=== PATIENT | female | born 1970 | race Caucasian/White ===

== ENCOUNTER 2019-04-19 10:50 | Inpatient (IN) ==
[2019-04-19] MEDS ORDERED: Isovue-370 500 ML BOTTLE IVP ONE (11:00)
[2019-04-19] MEDS ORDERED: 0.9 % Sodium Chloride 1,000 ML IVC STA ×2 (11:14→11:43)
[2019-04-19 11:32] LABS: Hematocrit 38.5 % (35.3-44.9); Hemoglobin 12.3 g/dL (11.5-15.4); Mean Corpuscular HGB Conc 31.9 g/dL (31.6-35.5); Mean Corpuscular Hemoglobin 28.7 pg (28.0-33.3); Platelet Count 126 K/mcL (140-400); Red Blood Count 4.28 M/mcL (3.82-4.97); Red Cell Distribution Width 15.9 % (11.5-14.5); White Blood Count 10.5 K/mcL (4.3-11.1)
[2019-04-19] MEDS ORDERED: Ondansetron 4 MG/2 ML VIAL IVP STA (11:35)
[2019-04-19] MEDS ORDERED: Pantoprazole 80 MG in 0.9 % Sodium Chloride 50 ML IVPB ONE (11:38)
[2019-04-19] MEDS ORDERED: 0.9 % Sodium Chloride 1,000 ML ONE ×2 (11:40→14:14)
[2019-04-19] MEDS ORDERED: 0.9 % Sodium Chloride 500 ML ONE (11:47)
[2019-04-19 11:54] LABS: Alanine Aminotransferase 19 Units/L (7-52); Albumin 3.6 g/dL (3.5-5.7); Albumin/Globulin Ratio 1.1 (1.1-2.2); Alkaline Phosphatase 100 Units/L (34-104); Aspartate Amino Transferase 31 Units/L (13-39); BUN/Creatinine Ratio 36 (6-26); Bilirubin,Direct 0.6 mg/dL (0.0-0.2); Bilirubin,Indirect 1.3 mg/dL (0.0-1.0); Bilirubin,Total 1.9 mg/dL (0.3-1.0); Blood Urea Nitrogen 24 mg/dL (6-20); Calcium 9.2 mg/dL (8.6-10.3); Carbon Dioxide 21 mEq/L (23-29); Chloride 101 mEq/L (98-107); Globulin 3.2 g/dL (2.4-3.5); Glucose 176 mg/dL (70-105); Lipase 36 Units/L (11-82); Osmolality,Calculated 292 (280-300); Potassium 3.3 mEq/L (3.5-5.1); Sodium 137 mEq/L (136-145); Total Protein 6.8 g/dL (6.4-8.9); eGFR For African Americans > 60 (> 60); eGFR For Non-African Americans > 60 (> 60)
[2019-04-19 12:02] LABS: INR 1.3; Prothrombin Time 14.3 Seconds (9.4-12.1)
[2019-04-19 12:06] LABS: Activated Partial Thrombo Time 33.3 Seconds (26.0-36.0)
[2019-04-19 12:18] LABS: Lymphocytes # 3.6 K/mcL (0.6-4.6); Monocytes # 0.8 K/mcL (0.0-1.3); Neutrophils # 6.1 K/mcL (1.6-8.9); Platelet Estimate Slight Decrease (Normal)
[2019-04-19 12:19] LABS: Reactive Lymphocytes Present (Not Present)
[2019-04-19] MEDS ORDERED: *HR* Midazolam HCl 5 MG/5 ML VIAL IVP ONE ×4 (12:44→13:18)
[2019-04-19] MEDS ORDERED: *HR* FentaNYL (PF) 100 MCG/2 ML VIAL IVP ONE (12:44)
[2019-04-19] MEDS ORDERED: *HR* FentaNYL (PF) 100 MCG/2 ML VIAL ONE ×2 (13:19→14:43)
[2019-04-19] MEDS ORDERED: cefTRIAXone 1,000 MG in Water for inj. (sterile) 10 ML IVP ONE (13:35)
[2019-04-19] MEDS: Octreotide 400 MCG in 0.9 % Sodium Chloride 100 ML IVC SCH ×2 (14:15→23:00)
[2019-04-19] MEDS ORDERED: *HR* Propofol 200 MG/20 ML VIAL IVP ONE (14:43)
[2019-04-19] MEDS ORDERED: *HR* Midazolam HCl 2 MG/2 ML VIAL ONE (14:43)
[2019-04-19] MEDS ORDERED: Lidocaine -MPF 2% 2 ML VIAL ONE (14:44)
[2019-04-19] MEDS ORDERED: Lidocaine -MPF 4% 5 ML AMPUL ONE (14:46)
[2019-04-19] MEDS ORDERED: *HR* PHENYLEPHRINE 1,000 MCG/10 ML SYRINGE IVP ONE (15:24)
[2019-04-19] MEDS ORDERED: Dexamethasone 4 MG/ML VIAL ONE (15:35)
[2019-04-19] MEDS ORDERED: Ondansetron 4 MG/2 ML VIAL ONE (15:35)
[2019-04-19 17:32] LABS: Hemoglobin 13.1 g/dL (11.5-15.4)
[2019-04-19 17:33] LABS: Hematocrit 40.6 % (35.3-44.9)
[2019-04-19] MEDS ORDERED: Naloxone 0.4 MG/ML INJ IVP PRN (17:41)
[2019-04-19] MEDS ORDERED: Folic Acid 1 MG in 0.9 % Sodium Chloride 50 ML IVPB SCH (18:00)
[2019-04-19] MEDS ORDERED: Thiamine (B-1) 100 MG in 0.9 % Sodium Chloride 50 ML IVPB SCH (18:00)
[2019-04-19] MEDS ORDERED: Permethrin Cream Rinse 60 ML LIQUID TP ONE (18:18)
[2019-04-19] MEDS ORDERED: *HR* Dextrose 50 % in Water (Syg) 50 ML SYRINGE IVP PRN (18:23)
[2019-04-19] MEDS ORDERED: Dextrose Gel 15 GM/37.5 ML TUBE PO PRN ×2 (18:23)
[2019-04-19] MEDS ORDERED: D5% in Water 1,000 ML IVC PRN (18:23)
[2019-04-19] MEDS ORDERED: Thiamine (B-1) 100 MG, Folic Acid 1 MG in 0.9 % Sodium Chloride 50 ML IVPB SCH (18:45)
[2019-04-19] MEDS: Pantoprazole 40 MG VIAL IVP SCH (18:49)
[2019-04-19 21:27] LABS: Estimated Average Glucose 143 mg/dl
[2019-04-19] MEDS: 0.9 % Sodium Chloride w KCl 20 MEQ/1,000 ML MLS IVC SCH (22:06)
[2019-04-19 22:51] LABS: Hematocrit 39.5 % (35.3-44.9)
[2019-04-20] MEDS ORDERED: Ondansetron 4 MG/2 ML VIAL IVP PRN ×2 (01:31→12:05)
[2019-04-20 05:06] LABS: Basophils % 0.2 %; Immature Granulocytes % 0.6 % (0-4); Segmented Neutrophils % 70.2 %
[2019-04-20 05:08] LABS: Hemoglobin 12.2 g/dL (11.5-15.4); Lymphocytes # 1.9 K/mcL (0.6-4.6); Mean Corpuscular HGB Conc 32.1 g/dL (31.6-35.5); Mean Corpuscular Hemoglobin 28.2 pg (28.0-33.3); Mean Corpuscular Volume 87.8 fL (83.0-100.0); Mean Platelet Volume 12.3 fL (9.4-12.4); Monocytes # 1.2 K/mcL (0.0-1.3); Neutrophils # 7.5 K/mcL (1.6-8.9); Red Blood Count 4.33 M/mcL (3.82-4.97); Red Cell Distribution Width 17.1 % (11.5-14.5); White Blood Count 10.7 K/mcL (4.3-11.1)
[2019-04-20 05:21] LABS: Platelet Count 85 K/mcL (140-400)
[2019-04-20 05:29] LABS: Alanine Aminotransferase 20 Units/L (7-52); Albumin 3.3 g/dL (3.5-5.7); Albumin/Globulin Ratio 1.1 (1.1-2.2); Alkaline Phosphatase 86 Units/L (34-104); Aspartate Amino Transferase 27 Units/L (13-39); BUN/Creatinine Ratio 53 (6-26); Blood Urea Nitrogen 38 mg/dL (6-20); Calcium 8.4 mg/dL (8.6-10.3); Carbon Dioxide 20 mEq/L (23-29); Chloride 112 mEq/L (98-107); Glucose 204 mg/dL (70-105); Magnesium 1.9 mg/dL (1.6-2.6); Osmolality,Calculated 311 (280-300); Phosphorous 3.3 mg/dL (2.7-4.5); Potassium 3.9 mEq/L (3.5-5.1); Sodium 143 mEq/L (136-145); Total Protein 6.3 g/dL (6.4-8.9); eGFR For African Americans > 60 (> 60); eGFR For Non-African Americans > 60 (> 60)
[2019-04-20] MEDS: Pantoprazole 40 MG VIAL IVP SCH ×2 (05:29→17:33)
[2019-04-20] MEDS: Octreotide 400 MCG in 0.9 % Sodium Chloride 100 ML IVC SCH (07:45)
[2019-04-20] MEDS: 0.9 % Sodium Chloride w KCl 20 MEQ/1,000 ML MLS IVC SCH ×2 (11:05→16:03)
[2019-04-20] MEDS ORDERED: Naloxone 0.4 MG/ML INJ IVP PRN (12:05)
[2019-04-20] MEDS ORDERED: D5% in Water 1,000 ML IVC PRN (12:05)
[2019-04-20] MEDS ORDERED: *HR* Dextrose 50 % in Water (Syg) 50 ML SYRINGE IVP PRN (12:05)
[2019-04-20] MEDS ORDERED: Dextrose Gel 15 GM/37.5 ML TUBE PO PRN ×2 (12:05)
[2019-04-20] MEDS: Thiamine (B-1) 100 MG, Folic Acid 1 MG in 0.9 % Sodium Chloride 50 ML IVPB SCH (21:16)
[2019-04-21] MEDS: 0.9 % Sodium Chloride w KCl 20 MEQ/1,000 ML MLS IVC SCH ×2 (00:27→14:02)
[2019-04-21] MEDS: Pantoprazole 40 MG VIAL IVP SCH ×2 (05:09→17:48)
[2019-04-21] MEDS: Thiamine (B-1) 100 MG, Folic Acid 1 MG in 0.9 % Sodium Chloride 50 ML IVPB SCH (17:49)
[2019-04-22] MEDS: Pantoprazole 40 MG VIAL IVP SCH ×2 (05:29→17:31)
[2019-04-22] MEDS: 0.9 % Sodium Chloride w KCl 20 MEQ/1,000 ML MLS IVC SCH (05:29)
[2019-04-22 06:16] LABS: Basophils % 0.3 %
[2019-04-22 06:17] LABS: Eosinophils # 0.1 K/mcL (0.0-0.6); Eosinophils % 1.9 %; Hematocrit 28.3 % (35.3-44.9); Hemoglobin 8.8 g/dL (11.5-15.4); Immature Granulocytes % 0.7 % (0-4); Immature Platelets 5.2 % (1.1-6.1); Lymphocytes # 2.1 K/mcL (0.6-4.6); Lymphocytes % 35.6 %; Mean Corpuscular HGB Conc 31.1 g/dL (31.6-35.5); Mean Corpuscular Hemoglobin 28.6 pg (28.0-33.3); Mean Corpuscular Volume 91.9 fL (83.0-100.0); Mean Platelet Volume 11.2 fL (9.4-12.4); Monocytes # 0.6 K/mcL (0.0-1.3); Monocytes % 10.2 %; Nucleated Red Blood Cells 0.5 /100 WBC (0); Red Blood Count 3.08 M/mcL (3.82-4.97); Red Cell Distribution Width 17.7 % (11.5-14.5); Segmented Neutrophils % 51.3 %; White Blood Count 5.9 K/mcL (4.3-11.1)
[2019-04-22 06:47] LABS: Alanine Aminotransferase 16 Units/L (7-52); Albumin/Globulin Ratio 1.3 (1.1-2.2); Alkaline Phosphatase 72 Units/L (34-104); Aspartate Amino Transferase 28 Units/L (13-39); BUN/Creatinine Ratio 33 (6-26); Bilirubin,Total 0.9 mg/dL (0.3-1.0); Blood Urea Nitrogen 17 mg/dL (6-20); Calcium 8.1 mg/dL (8.6-10.3); Carbon Dioxide 23 mEq/L (23-29); Chloride 111 mEq/L (98-107); Globulin 2.4 g/dL (2.4-3.5); Glucose 143 mg/dL (70-105); Osmolality,Calculated 290 (280-300); Potassium 3.5 mEq/L (3.5-5.1); Sodium 138 mEq/L (136-145); Total Protein 5.4 g/dL (6.4-8.9); eGFR For African Americans > 60 (> 60); eGFR For Non-African Americans > 60 (> 60)
[2019-04-22 06:48] LABS: Platelet Count 59 K/mcL (140-400)
[2019-04-22 06:49] LABS: Platelet Estimate Decreased (Normal)
[2019-04-22 11:23] LABS: Hematocrit 29.4 % (35.3-44.9); Hemoglobin 9.1 g/dL (11.5-15.4)
[2019-04-22] MEDS ORDERED: Lidocaine -MPF 2% 2 ML VIAL ONE (13:37)
[2019-04-22] MEDS ORDERED: *HR* Propofol 200 MG/20 ML VIAL IVP ONE ×2 (13:37→14:00)
[2019-04-22 17:03] LABS: INR 1.2; Prothrombin Time 13.2 Seconds (9.4-12.1)
[2019-04-22 17:14] LABS: % Iron Saturation 12 % (15-50); Iron 34 mcg/dL (50-170); Transferrin 208 mg/dL (203-362)
[2019-04-22 17:32] LABS: Ferritin 46 ng/mL (10-120)
[2019-04-22] MEDS: Thiamine (B-1) 100 MG, Folic Acid 1 MG in 0.9 % Sodium Chloride 50 ML IVPB SCH (18:19)
[2019-04-22 21:35] LABS: Hematocrit 29.9 % (35.3-44.9); Hemoglobin 9.4 g/dL (11.5-15.4)
[2019-04-23 04:42] LABS: Basophils % 0.4 %; Immature Granulocytes % 0.6 % (0-4); Mean Corpuscular Volume 93.8 fL (83.0-100.0)
[2019-04-23 04:44] LABS: Eosinophils # 0.1 K/mcL (0.0-0.6); Eosinophils % 2.1 %; Hematocrit 30.4 % (35.3-44.9); Hemoglobin 9.3 g/dL (11.5-15.4); Immature Platelets 6.7 % (1.1-6.1); Lymphocytes # 1.7 K/mcL (0.6-4.6); Lymphocytes % 35.3 %; Mean Corpuscular HGB Conc 30.6 g/dL (31.6-35.5); Mean Corpuscular Hemoglobin 28.7 pg (28.0-33.3); Mean Platelet Volume 11.1 fL (9.4-12.4); Monocytes # 0.5 K/mcL (0.0-1.3); Red Blood Count 3.24 M/mcL (3.82-4.97); Red Cell Distribution Width 17.8 % (11.5-14.5); Segmented Neutrophils % 50.6 %; White Blood Count 4.8 K/mcL (4.3-11.1)
[2019-04-23 04:46] LABS: Neutrophils # 2.4 K/mcL (1.6-8.9); Platelet Count 59 K/mcL (140-400)
[2019-04-23] MEDS: Thiamine (B-1) 100 MG TABLET PO SCH (08:04)
[2019-04-23] MEDS: Folic Acid 1 MG TABLET PO SCH (08:04)
[2019-04-23] MEDS: Pantoprazole 40 MG VIAL IVP SCH (08:05)
[2019-04-23] MEDS: Multivit/Ca/Min/Fe/FA 1 TAB TABLET PO SCH (08:05)
[2019-04-24 06:53] VITALS: BP 107/69
[2019-04-24 07:28] LABS: Red Blood Count 3.45 M/mcL (3.82-4.97)
[2019-04-24 07:30] LABS: Basophils % 0.4 %; Eosinophils # 0.1 K/mcL (0.0-0.6); Eosinophils % 2.1 %; Hematocrit 31.5 % (35.3-44.9); Immature Granulocytes % 0.4 % (0-4); Immature Platelets 8.7 % (1.1-6.1); Lymphocytes # 1.6 K/mcL (0.6-4.6); Lymphocytes % 32.4 %; Mean Corpuscular HGB Conc 31.7 g/dL (31.6-35.5); Mean Corpuscular Volume 91.3 fL (83.0-100.0); Mean Platelet Volume 11.3 fL (9.4-12.4); Monocytes # 0.5 K/mcL (0.0-1.3); Monocytes % 11.2 %; Neutrophils # 2.6 K/mcL (1.6-8.9); Red Cell Distribution Width 18.1 % (11.5-14.5); Segmented Neutrophils % 53.5 %; White Blood Count 4.8 K/mcL (4.3-11.1)
[2019-04-24 07:43] LABS: Platelet Count 58 K/mcL (140-400)
[2019-04-24] MEDS: Multivit/Ca/Min/Fe/FA 1 TAB TABLET PO SCH (08:43)
[2019-04-24] MEDS: Thiamine (B-1) 100 MG TABLET PO SCH (08:43)
[2019-04-24] MEDS: Folic Acid 1 MG TABLET PO SCH (08:43)
[2019-04-25 07:17] LABS: ANA IgG by ELISA NONE DETECTED (None Detected)
[2019-04-25 07:45] LABS: AFP Tumor Marker Non-Pregnant 3 ng/mL (0-9)
[2019-04-26 07:00] LABS: Saccharomyces cerevisiae IgA 57.6 Units (0.0-24.9)
[2019-04-26 07:01] LABS: F-Actin (sm muscle) Ab IgG 10 Units (0-19); Serine Protease-3 Antibody 40 AU/mL (0-19)
[2019-04-27 10:42] LABS: Immunoglobulin A (CELIAC) 226 mg/dL (68-408)
[2019-04-27 11:00] LABS: Tissue Transglutaminase IgA <2 U/mL (0-3)
[2019-04-28 15:39] LABS: A1A SZ Specimen WHOLE BLOOD; Alpha-1-Antitrypsin S Allele NEGATIVE; Alpha-1-Antitrypsin Z Allele NEGATIVE
[2019-04-29 14:52] LABS: Alpha-1-Antitrypsin 154 mg/dL (90-200)
== END 2019-04-24 09:40 | disposition home or self-care (01) ==
LOC: EMEROOARM 10:50 → ICNU 15:15 → SUATTDRO 16:17 → ICNU 16:17 → 3ANU 04-20 14:44
PROVIDERS: ADMIT Internal Medicine; ATTEND Internal Medicine

== ENCOUNTER 2021-01-05 14:13 | Inpatient (IN) ==
[2021-01-05 16:24] LABS: Basophils % 0.2 %
[2021-01-05 16:26] LABS: Alanine Aminotransferase 13 Units/L (7-52); Albumin 3.1 g/dL (3.5-5.7); Alkaline Phosphatase 82 Units/L (34-104); Aspartate Amino Transferase 25 Units/L (13-39); BUN/Creatinine Ratio 36 (6-26); Bilirubin,Total 3.2 mg/dL (0.3-1.0); Blood Urea Nitrogen 19 mg/dL (6-20); Calcium 8.7 mg/dL (8.6-10.3); Carbon Dioxide 30 mEq/L (23-29); Chloride 103 mEq/L (98-107); Eosinophils # 0.1 K/mcL (0.0-0.6); Eosinophils % 0.8 %; Globulin 3.2 g/dL (2.4-3.5); Glucose 160 mg/dL (70-105); Hematocrit 22.7 % (35.3-44.9); Immature Granulocytes % 0.9 % (0-4); Immature Platelets 12.3 % (1.1-6.1); Lymphocytes # 0.8 K/mcL (0.6-4.6); Lymphocytes % 11.3 %; Mean Corpuscular HGB Conc 25.1 g/dL (31.6-35.5); Mean Corpuscular Hemoglobin 20.4 pg (28.0-33.3); Mean Corpuscular Volume 81.4 fL (83.0-100.0); Mean Platelet Volume 12.9 fL (9.4-12.4); Monocytes # 0.8 K/mcL (0.0-1.3); Monocytes % 12.3 %; Nucleated Red Blood Cells 0.5 /100 WBC (0); Osmolality,Calculated 294 (280-300); Platelet Count 106 K/mcL (140-400); Potassium 3.8 mEq/L (3.5-5.1); Red Blood Count 2.79 M/mcL (3.82-4.97); Red Cell Distribution Width 19.5 % (11.5-14.5); Segmented Neutrophils % 74.5 %; Sodium 139 mEq/L (136-145); Total Protein 6.3 g/dL (6.4-8.9); Troponin I < 0.03 ng/mL (< 0.04); White Blood Count 6.6 K/mcL (4.3-11.1); eGFR For African Americans > 60 (> 60); eGFR For Non-African Americans > 60 (> 60)
[2021-01-05 16:46] LABS: Neutrophils # 4.9 K/mcL (1.6-8.9)
[2021-01-05 16:52] LABS: Hemoglobin 5.7 g/dL (11.5-15.4)
[2021-01-05] MEDS ORDERED: Morphine Sulfate 2 MG/ML SYRINGE IVP ONE (16:56)
[2021-01-05] MEDS ORDERED: Ondansetron 4 MG/2 ML VIAL IVP ONE (16:56)
[2021-01-05 17:06] LABS: Anisocytosis 2+ (Not Present); Ovalocytes 1+ (Not Present); Stomatocytes 1+ (Not Present)
[2021-01-05 17:09] LABS: Platelet Estimate Decreased (Normal)
[2021-01-05 17:10] LABS: Tear Drop Cells 1+ (Not Present)
[2021-01-05 17:35] LABS: Bacteria,Urine Many per hpf (None-Few); Bilirubin,Urine Negative (Negative); Blood,Urine Negative (Negative); Clarity,Urine Turbid (Clear); Color,Urine Yellow (Yellow); Glucose,Urine (UA) >=1000 mg/dL (Normal); Ketones,Urine 20 mg/dL (Negative); Leukocyte Esterase,Urine Moderate (Negative); Mucus,Urine Many per lpf (None-Few); Nitrite,Urine Positive (Negative); PH,Urine 5.5 pH Units (5.0-8.0); Protein,Urine Trace mg/dL (Neg-Trace); RBC,Urine 0-3 per hpf (0-3); Specific Gravity,Urine > 1.030 (1.010-1.025); Squamous Epithelial Cell,Urine Few per hpf (None-Few); Urobilinogen,Urine >=8.0 mg/dL (Normal); WBC,Urine TNTC per hpf (0-3)
[2021-01-05] MEDS ORDERED: Naloxone 0.4 MG/ML INJ IVP PRN (17:40)
[2021-01-05] MEDS ORDERED: Ondansetron 4 MG/2 ML VIAL IVP PRN (17:40)
[2021-01-05] MEDS ORDERED: Pantoprazole 80 MG in 0.9 % Sodium Chloride 50 ML IVPB ONE (17:42)
[2021-01-05] MEDS ORDERED: Dextrose Gel 15 GM/37.5 ML TUBE PO PRN ×2 (17:44)
[2021-01-05] MEDS ORDERED: D5% in Water 1,000 ML IVC PRN (17:44)
[2021-01-05] MEDS ORDERED: *HR* Dextrose 50 % in Water (Syg) 50 ML SYRINGE IVP PRN (17:44)
[2021-01-05 18:15] LABS: INR 1.5; Prothrombin Time 16.5 Seconds (9.4-12.1)
[2021-01-05] MEDS ORDERED: 0.9 % Sodium Chloride 250 ML ONE (20:13)
[2021-01-05] MEDS: Insulin LISPRO 300 UNITS/3 ML VIAL SUBQ SCH ×2 (21:58→23:14)
[2021-01-05] MEDS: cefTRIAXone 2,000 MG in Water for inj. (sterile) 20 ML IVP SCH (21:59)
[2021-01-05] MEDS: Azithromycin 500 MG in 0.9 % Sodium Chloride 250 ML IVPB SCH (22:02)
[2021-01-05] MEDS: Octreotide 400 MCG in 0.9 % Sodium Chloride 100 ML IVC SCH (22:57)
[2021-01-06] MEDS: *HR* OxyCODONE Immed Rel 5 MG TABLET PO PRN ×3 (01:44→16:32)
[2021-01-06 02:25] LABS: Hematocrit 23.4 % (35.3-44.9); Mean Corpuscular Volume 81.8 fL (83.0-100.0); Mean Platelet Volume 12.1 fL (9.4-12.4); Red Blood Count 2.86 M/mcL (3.82-4.97)
[2021-01-06 02:26] LABS: Hemoglobin 6.2 g/dL (11.5-15.4); Mean Corpuscular HGB Conc 26.5 g/dL (31.6-35.5); Mean Corpuscular Hemoglobin 21.7 pg (28.0-33.3); Platelet Count 159 K/mcL (140-400); Red Cell Distribution Width 19.3 % (11.5-14.5); White Blood Count 10.8 K/mcL (4.3-11.1)
[2021-01-06 02:33] LABS: INR 1.4; Prothrombin Time 15.9 Seconds (9.4-12.1)
[2021-01-06 02:48] LABS: Alanine Aminotransferase 12 Units/L (7-52); Albumin 2.9 g/dL (3.5-5.7); Albumin/Globulin Ratio 0.9 (1.1-2.2); Alkaline Phosphatase 73 Units/L (34-104); Aspartate Amino Transferase 22 Units/L (13-39); BUN/Creatinine Ratio 38 (6-26); Bilirubin,Total 3.2 mg/dL (0.3-1.0); Blood Urea Nitrogen 19 mg/dL (6-20); Calcium 8.3 mg/dL (8.6-10.3); Carbon Dioxide 28 mEq/L (23-29); Chloride 104 mEq/L (98-107); Globulin 3.2 g/dL (2.4-3.5); Glucose 148 mg/dL (70-105); Osmolality,Calculated 293 (280-300); Potassium 4.1 mEq/L (3.5-5.1); Sodium 139 mEq/L (136-145); Total Protein 6.1 g/dL (6.4-8.9); eGFR For African Americans > 60 (> 60); eGFR For Non-African Americans > 60 (> 60)
[2021-01-06] MEDS: Octreotide 400 MCG in 0.9 % Sodium Chloride 100 ML IVC SCH ×3 (02:54→21:11)
[2021-01-06] MEDS: Pantoprazole 40 MG VIAL IVP SCH ×2 (05:45→18:26)
[2021-01-06] MEDS: Insulin LISPRO 300 UNITS/3 ML VIAL SUBQ SCH ×4 (08:06→22:02)
[2021-01-06] MEDS ORDERED: Lidocaine -MPF 2% 5 ML VIAL ONE (08:38)
[2021-01-06] MEDS ORDERED: *HR* Propofol 200 MG/20 ML VIAL IVP ONE (08:38)
[2021-01-06] MEDS ORDERED: 0.9 % Sodium Chloride 250 ML IVC SCH (10:15)
[2021-01-06] MEDS ORDERED: Simethicone 40 MG/0.6 ML MLS IR ONE (10:41)
[2021-01-06] MEDS ORDERED: 0.9 % Sodium Chloride 250 ML ONE (17:53)
[2021-01-06] MEDS: Azithromycin 500 MG in 0.9 % Sodium Chloride 250 ML IVPB SCH (18:25)
[2021-01-06] MEDS: cefTRIAXone 2,000 MG in Water for inj. (sterile) 20 ML IVP SCH (18:26)
[2021-01-06 21:49] LABS: Hemoglobin 6.9 g/dL (11.5-15.4); Nucleated Red Blood Cells 1.2 /100 WBC (0)
[2021-01-06 21:51] LABS: Basophils % 0.4 %; Eosinophils # 0.1 K/mcL (0.0-0.6); Eosinophils % 1.1 %; Hematocrit 24.7 % (35.3-44.9); Immature Granulocytes % 2.3 % (0-4); Immature Platelets 8.4 % (1.1-6.1); Lymphocytes # 1.3 K/mcL (0.6-4.6); Lymphocytes % 13.9 %; Mean Corpuscular HGB Conc 27.9 g/dL (31.6-35.5); Mean Corpuscular Hemoglobin 22.8 pg (28.0-33.3); Mean Corpuscular Volume 81.8 fL (83.0-100.0); Mean Platelet Volume 11.6 fL (9.4-12.4); Monocytes # 1.2 K/mcL (0.0-1.3); Neutrophils # 6.2 K/mcL (1.6-8.9); Platelet Count 120 K/mcL (140-400); Red Blood Count 3.02 M/mcL (3.82-4.97); Segmented Neutrophils % 69.3 %
[2021-01-06 22:56] LABS: Hypochromasia Present (Not Present); Platelet Estimate Slight Decrease (Normal)
[2021-01-07] MEDS: *HR* OxyCODONE Immed Rel 5 MG TABLET PO PRN ×2 (00:37→14:29)
[2021-01-07] MEDS: Pantoprazole 40 MG VIAL IVP SCH ×2 (06:07→18:48)
[2021-01-07] MEDS: Insulin LISPRO 300 UNITS/3 ML VIAL SUBQ SCH ×4 (09:27→20:17)
[2021-01-07 11:15] LABS: Red Cell Distribution Width 19.2 % (11.5-14.5)
[2021-01-07 11:16] LABS: Hematocrit 25.8 % (35.3-44.9); Mean Corpuscular HGB Conc 27.1 g/dL (31.6-35.5); Mean Corpuscular Volume 84.9 fL (83.0-100.0); Mean Platelet Volume 11.7 fL (9.4-12.4); Platelet Count 137 K/mcL (140-400); Red Blood Count 3.04 M/mcL (3.82-4.97); White Blood Count 8.4 K/mcL (4.3-11.1)
[2021-01-07 11:24] LABS: INR 1.4; Prothrombin Time 15.5 Seconds (9.4-12.1)
[2021-01-07 11:34] LABS: Alanine Aminotransferase 12 Units/L (7-52); Alkaline Phosphatase 83 Units/L (34-104); Aspartate Amino Transferase 25 Units/L (13-39); BUN/Creatinine Ratio 43 (6-26); Bilirubin,Total 2.3 mg/dL (0.3-1.0); Blood Urea Nitrogen 26 mg/dL (6-20); Calcium 8.3 mg/dL (8.6-10.3); Carbon Dioxide 28 mEq/L (23-29); Chloride 102 mEq/L (98-107); Globulin 3.1 g/dL (2.4-3.5); Glucose 216 mg/dL (70-105); Osmolality,Calculated 291 (280-300); Potassium 4.6 mEq/L (3.5-5.1); Sodium 135 mEq/L (136-145); Total Protein 6.1 g/dL (6.4-8.9); eGFR For African Americans > 60 (> 60); eGFR For Non-African Americans > 60 (> 60)
[2021-01-07] MEDS: cefTRIAXone 2,000 MG in Water for inj. (sterile) 20 ML IVP SCH (18:47)
[2021-01-07] MEDS: Azithromycin 500 MG in 0.9 % Sodium Chloride 250 ML IVPB SCH (18:48)
[2021-01-07] MEDS: Octreotide 400 MCG in 0.9 % Sodium Chloride 100 ML IVC SCH (19:14)
[2021-01-08] MEDS: *HR* OxyCODONE Immed Rel 5 MG TABLET PO PRN (04:07)
[2021-01-08 05:21] LABS: Hemoglobin 6.9 g/dL (11.5-15.4)
[2021-01-08 05:23] LABS: Hematocrit 25.3 % (35.3-44.9); Immature Platelets 8.2 % (1.1-6.1); Mean Corpuscular HGB Conc 27.3 g/dL (31.6-35.5); Mean Corpuscular Hemoglobin 23.2 pg (28.0-33.3); Mean Corpuscular Volume 85.2 fL (83.0-100.0); Mean Platelet Volume 10.6 fL (9.4-12.4); Red Blood Count 2.97 M/mcL (3.82-4.97); Red Cell Distribution Width 19.6 % (11.5-14.5); White Blood Count 7.3 K/mcL (4.3-11.1)
[2021-01-08] MEDS: Pantoprazole 40 MG VIAL IVP SCH ×2 (05:27→21:12)
[2021-01-08 05:28] LABS: INR 1.3; Prothrombin Time 14.9 Seconds (9.4-12.1)
[2021-01-08 05:37] LABS: Alanine Aminotransferase 13 Units/L (7-52); Alkaline Phosphatase 77 Units/L (34-104); Aspartate Amino Transferase 31 Units/L (13-39); BUN/Creatinine Ratio 56 (6-26); Blood Urea Nitrogen 31 mg/dL (6-20); Calcium 8.7 mg/dL (8.6-10.3); Carbon Dioxide 32 mEq/L (23-29); Chloride 102 mEq/L (98-107); Globulin 3.1 g/dL (2.4-3.5); Glucose 179 mg/dL (70-105); Osmolality,Calculated 297 (280-300); Potassium 4.9 mEq/L (3.5-5.1); Sodium 138 mEq/L (136-145); Total Protein 6.1 g/dL (6.4-8.9); eGFR For African Americans > 60 (> 60); eGFR For Non-African Americans > 60 (> 60)
[2021-01-08] MEDS: Insulin LISPRO 300 UNITS/3 ML VIAL SUBQ SCH ×4 (09:01→21:14)
[2021-01-08] MEDS: cefTRIAXone 2,000 MG in Water for inj. (sterile) 20 ML IVP SCH (21:12)
[2021-01-08] MEDS: Octreotide 400 MCG in 0.9 % Sodium Chloride 100 ML IVC SCH (21:13)
[2021-01-08] MEDS: Azithromycin 500 MG in 0.9 % Sodium Chloride 250 ML IVPB SCH (21:13)
[2021-01-08 23:43] LABS: Hemoglobin 8.1 g/dL (11.5-15.4)
[2021-01-09] MEDS: Pantoprazole 40 MG VIAL IVP SCH ×2 (05:31→18:49)
[2021-01-09] MEDS: Octreotide 400 MCG in 0.9 % Sodium Chloride 100 ML IVC SCH ×3 (05:31→18:50)
[2021-01-09 06:43] LABS: Hemoglobin 7.9 g/dL (11.5-15.4); Mean Corpuscular HGB Conc 27.2 g/dL (31.6-35.5); Mean Corpuscular Hemoglobin 23.7 pg (28.0-33.3); Mean Corpuscular Volume 86.8 fL (83.0-100.0); Mean Platelet Volume 11.4 fL (9.4-12.4); Red Blood Count 3.34 M/mcL (3.82-4.97); Red Cell Distribution Width 20.6 % (11.5-14.5); White Blood Count 6.3 K/mcL (4.3-11.1)
[2021-01-09 06:44] LABS: Platelet Count 87 K/mcL (140-400)
[2021-01-09 06:59] LABS: INR 1.5; Prothrombin Time 16.3 Seconds (9.4-12.1)
[2021-01-09 07:21] LABS: Alanine Aminotransferase 14 Units/L (7-52); Albumin 2.9 g/dL (3.5-5.7); Albumin/Globulin Ratio 0.9 (1.1-2.2); Alkaline Phosphatase 84 Units/L (34-104); Aspartate Amino Transferase 31 Units/L (13-39); BUN/Creatinine Ratio 65 (6-26); Bilirubin,Total 1.9 mg/dL (0.3-1.0); Blood Urea Nitrogen 30 mg/dL (6-20); Calcium 8.7 mg/dL (8.6-10.3); Carbon Dioxide 30 mEq/L (23-29); Chloride 103 mEq/L (98-107); Globulin 3.3 g/dL (2.4-3.5); Glucose 168 mg/dL (70-105); Osmolality,Calculated 296 (280-300); Sodium 138 mEq/L (136-145); Total Protein 6.2 g/dL (6.4-8.9); eGFR For African Americans > 60 (> 60); eGFR For Non-African Americans > 60 (> 60)
[2021-01-09] MEDS: Insulin LISPRO 300 UNITS/3 ML VIAL SUBQ SCH ×5 (09:50→20:32)
[2021-01-09] MEDS ORDERED: Melatonin 3 MG TABLET PO PRN (13:16)
[2021-01-09] MEDS: Azithromycin 500 MG in 0.9 % Sodium Chloride 250 ML IVPB SCH (18:49)
[2021-01-09] MEDS: cefTRIAXone 2,000 MG in Water for inj. (sterile) 20 ML IVP SCH (18:49)
[2021-01-10 02:58] LABS: Hematocrit 29.4 % (35.3-44.9); Hemoglobin 7.8 g/dL (11.5-15.4); Mean Corpuscular HGB Conc 26.5 g/dL (31.6-35.5); Mean Corpuscular Hemoglobin 23.1 pg (28.0-33.3)
[2021-01-10 03:00] LABS: Mean Platelet Volume 11.2 fL (9.4-12.4); Red Blood Count 3.38 M/mcL (3.82-4.97); Red Cell Distribution Width 21.7 % (11.5-14.5); White Blood Count 6.5 K/mcL (4.3-11.1)
[2021-01-10 03:08] LABS: Alanine Aminotransferase 13 Units/L (7-52); Albumin 2.8 g/dL (3.5-5.7); Albumin/Globulin Ratio 0.9 (1.1-2.2); Alkaline Phosphatase 81 Units/L (34-104); Aspartate Amino Transferase 22 Units/L (13-39); Bilirubin,Total 1.7 mg/dL (0.3-1.0); Blood Urea Nitrogen 24 mg/dL (6-20); Calcium 8.6 mg/dL (8.6-10.3); Carbon Dioxide 31 mEq/L (23-29); Chloride 103 mEq/L (98-107); Globulin 3.2 g/dL (2.4-3.5); Glucose 193 mg/dL (70-105); Osmolality,Calculated 299 (280-300); Potassium 4.3 mEq/L (3.5-5.1); Sodium 140 mEq/L (136-145)
[2021-01-10] MEDS: Octreotide 400 MCG in 0.9 % Sodium Chloride 100 ML IVC SCH (04:06)
[2021-01-10 04:10] LABS: BUN/Creatinine Ratio 56 (6-26); eGFR For African Americans > 60 (> 60); eGFR For Non-African Americans > 60 (> 60)
[2021-01-10] MEDS: Pantoprazole 40 MG VIAL IVP SCH (05:14)
[2021-01-10] MEDS: Insulin LISPRO 300 UNITS/3 ML VIAL SUBQ SCH ×4 (08:27→21:11)
[2021-01-10] MEDS: cefTRIAXone 2,000 MG in Water for inj. (sterile) 20 ML IVP SCH (21:06)
[2021-01-11] MEDS: *HR* OxyCODONE Immed Rel 5 MG TABLET PO PRN ×2 (01:17→21:48)
[2021-01-11 02:10] LABS: Hemoglobin 7.5 g/dL (11.5-15.4)
[2021-01-11 02:12] LABS: Hematocrit 27.8 % (35.3-44.9); Immature Platelets 9.9 % (1.1-6.1); Mean Corpuscular Hemoglobin 23.3 pg (28.0-33.3); Mean Corpuscular Volume 86.3 fL (83.0-100.0); Mean Platelet Volume 10.7 fL (9.4-12.4); Red Blood Count 3.22 M/mcL (3.82-4.97); Red Cell Distribution Width 22.8 % (11.5-14.5); White Blood Count 5.3 K/mcL (4.3-11.1)
[2021-01-11 02:22] LABS: BUN/Creatinine Ratio 50 (6-26); Blood Urea Nitrogen 21 mg/dL (6-20); Calcium 8.4 mg/dL (8.6-10.3); Carbon Dioxide 33 mEq/L (23-29); Chloride 101 mEq/L (98-107); Glucose 229 mg/dL (70-105); Osmolality,Calculated 298 (280-300); Potassium 3.9 mEq/L (3.5-5.1); Sodium 139 mEq/L (136-145); eGFR For African Americans > 60 (> 60); eGFR For Non-African Americans > 60 (> 60)
[2021-01-11] MEDS: Pantoprazole 40 MG VIAL IVP SCH ×2 (04:44→08:06)
[2021-01-11] MEDS: Insulin LISPRO 300 UNITS/3 ML VIAL SUBQ SCH ×4 (08:06→21:44)
[2021-01-11] MEDS: Furosemide 40 MG/4 ML VIAL IVP SCH (13:14)
[2021-01-11 19:44] LABS: Influenza A PCR Negative (Negative); Influenza B PCR Negative (Negative); Resp. Syncytial Virus PCR Negative (Negative)
[2021-01-11 19:57] LABS: SARS-CoV-2 by PCR (In House) Negative (Negative)
[2021-01-12 06:52] VITALS: BP 116/72; PULSE 80; TEMP 97.5; O2SAT 94
[2021-01-12] MEDS: Insulin LISPRO 300 UNITS/3 ML VIAL SUBQ SCH (08:33)
[2021-01-12] MEDS: Furosemide 40 MG/4 ML VIAL IVP SCH (08:34)
[2021-01-12] MEDS: *HR* OxyCODONE Immed Rel 5 MG TABLET PO PRN (08:34)
[2021-01-12] MEDS ORDERED: Furosemide 40 MG TABLET PO SCH (09:00)
== END 2021-01-12 09:52 | DRG 242 ==
LOC: EMEROOARM 14:13 → 3ANU 14:13 → SUATTDRO 19:06 → 3ANU 21:03 → SUATTDRO 01-06 16:48
PROVIDERS: ADMIT Internal Medicine; ATTEND Internal Medicine
PROC: ENDOEBX (2021-01-06 09:00)

== ENCOUNTER 2021-01-17 16:43 | Inpatient (IN) ==
[~2021-01-17 16:43] MED LIST: *HR* EPINEPHrine 1 MG/10 ML SYRINGE IVP ONE; *HR* Rocuronium Bromide 50 MG/5 ML VIAL IVP ONE
[2021-01-17] MEDS ORDERED: Pantoprazole 40 MG VIAL IVP ONE (17:15)
[2021-01-17 17:26] LABS: Hemoglobin 7.5 g/dL (11.5-15.4)
[2021-01-17 17:29] LABS: Eosinophils # 0.2 K/mcL (0.0-0.6); Mean Corpuscular HGB Conc 26.8 g/dL (31.6-35.5); Mean Corpuscular Hemoglobin 23.9 pg (28.0-33.3); Mean Corpuscular Volume 89.2 fL (83.0-100.0); Mean Platelet Volume 12.3 fL (9.4-12.4); Nucleated Red Blood Cells 1.8 /100 WBC (0); Platelet Count 268 K/mcL (140-400); Red Blood Count 3.14 M/mcL (3.82-4.97); Red Cell Distribution Width 24.5 % (11.5-14.5); White Blood Count 16.5 K/mcL (4.3-11.1)
[2021-01-17 17:40] LABS: INR 1.4; Prothrombin Time 15.6 Seconds (9.4-12.1)
[2021-01-17 17:42] LABS: Alanine Aminotransferase 12 Units/L (7-52); Albumin 2.8 g/dL (3.5-5.7); Albumin/Globulin Ratio 0.9 (1.1-2.2); Alkaline Phosphatase 104 Units/L (34-104); Aspartate Amino Transferase 23 Units/L (13-39); BUN/Creatinine Ratio 44 (6-26); Bilirubin,Total 2.4 mg/dL (0.3-1.0); Blood Urea Nitrogen 24 mg/dL (6-20); Calcium 8.9 mg/dL (8.6-10.3); Carbon Dioxide 33 mEq/L (23-29); Chloride 98 mEq/L (98-107); Globulin 3.1 g/dL (2.4-3.5); Glucose 184 mg/dL (70-105); Osmolality,Calculated 293 (280-300); Sodium 137 mEq/L (136-145); Total Protein 5.9 g/dL (6.4-8.9); eGFR For African Americans > 60 (> 60); eGFR For Non-African Americans > 60 (> 60)
[2021-01-17 17:43] LABS: Activated Partial Thrombo Time 28.3 Seconds (26.0-36.0)
[2021-01-17] MEDS ORDERED: 0.9 % Sodium Chloride 500 ML ONE ×2 (18:12→22:27)
[2021-01-17] MEDS ORDERED: *HR* FentaNYL (PF) 100 MCG/2 ML VIAL IVP ONE ×2 (18:13→18:30)
[2021-01-17] MEDS ORDERED: 0.9 % Sodium Chloride 250 ML ONE ×4 (18:13→23:01)
[2021-01-17] MEDS ORDERED: FentaNYL (PF) 1,000 MCG/100 ML IV.SOLN IVC SCH (18:15)
[2021-01-17 18:17] LABS: Anisocytosis 3+ (Not Present); Lymphocytes # 0.7 K/mcL (0.6-4.6); Macrocytosis Present (Not Present); Monocytes # 1.2 K/mcL (0.0-1.3); Neutrophils # 14.2 K/mcL (1.6-8.9); Platelet Estimate Normal (Normal); Poikilocytosis 1+ (Not Present); Polychromasia 1+ (Not Present)
[2021-01-17 18:18] LABS: Basophilic Stippling 1+ (Not Present); Toxic Granulation Present (Not Present)
[2021-01-17] MEDS ORDERED: 0.9 % Sodium Chloride 1,000 ML ONE ×3 (18:27→19:04)
[2021-01-17] MEDS: Octreotide 400 MCG in 0.9 % Sodium Chloride 100 ML IVC SCH (18:30)
[2021-01-17] MEDS ORDERED: Albumin 25% 25gram/100mL 25 GM/100 ML IV.SOLN IVPB ONE (18:57)
[2021-01-17] MEDS ORDERED: 0.9 % Sodium Chloride 1,000 ML IVC ONE (18:58)
[2021-01-17] MEDS ORDERED: Cefepime HCl 1,000 MG in 0.9 % Sodium Chloride Mini Bag 100 ML IVPB STA (18:58)
[2021-01-17] MEDS: Norepinephrine 4 MG/254 ML IV.SOLN IVC SCH (19:36)
[2021-01-17 19:40] LABS: Hematocrit 27.1 % (35.3-44.9); Hemoglobin 6.9 g/dL (11.5-15.4); Mean Corpuscular HGB Conc 25.5 g/dL (31.6-35.5); Mean Corpuscular Hemoglobin 24.3 pg (28.0-33.3); Mean Corpuscular Volume 95.4 fL (83.0-100.0); Mean Platelet Volume 12.4 fL (9.4-12.4); Nucleated Red Blood Cells 6.6 /100 WBC (0); Platelet Count 223 K/mcL (140-400); Red Blood Count 2.84 M/mcL (3.82-4.97); Red Cell Distribution Width 24.8 % (11.5-14.5)
[2021-01-17 19:42] LABS: White Blood Count 43.7 K/mcL (4.3-11.1)
[2021-01-17 20:06] LABS: Anisocytosis 2+ (Not Present); Hypochromasia Present (Not Present); Lymphocytes # 11.8 K/mcL (0.6-4.6); Macrocytosis Present (Not Present); Microcytosis Present (Not Present); Monocytes # 6.1 K/mcL (0.0-1.3); Neutrophils # 24.5 K/mcL (1.6-8.9); Platelet Estimate Normal (Normal); Polychromasia 1+ (Not Present)
[2021-01-17 20:07] LABS: Smudge Cells Present (Not Present); Stomatocytes 1+ (Not Present); Toxic Granulation Present (Not Present)
[2021-01-17] MEDS ORDERED: Metoclopramide 10 MG/2 ML VIAL IVP ONE (20:27)
[2021-01-17] MEDS ORDERED: Phenylephrine 10 MG in 0.9 % Sodium Chloride 250 ML IVC SCH (21:45)
[2021-01-17] MEDS ORDERED: Heparin 1,000 UNITS/500 mL 500 ML ONE (22:27)
[2021-01-17] MEDS ORDERED: Isovue-370 500 ML BOTTLE IVP ONE (22:29)
[2021-01-17] MEDS ORDERED: Vancomycin 2,000 MG/520 ML IV.SOLN IVPB ONE (22:56)
[2021-01-17] MEDS ORDERED: Artificial Tears SOLN 15 ML BOTTLE BOTH EYES PRN (23:46)
[2021-01-18] MEDS ORDERED: Dextrose Gel 15 GM/37.5 ML TUBE PO PRN ×2 (00:01)
[2021-01-18] MEDS ORDERED: D5% in Water 1,000 ML IVC PRN (00:01)
[2021-01-18] MEDS ORDERED: *HR* Dextrose 50 % in Water (Syg) 50 ML SYRINGE ONE (00:02)
[2021-01-18 00:03] LABS: ABG Base Excess -8 mEq/L (-2 to 3); ABG HCO3 19 mEq/L (21-27); ABG Oxygen Saturation 94 % (95-98); ABG PCO2 46 mmHg (35-45); ABG PH 7.23 pH Units (7.32-7.45); ABG PO2 82 mmHg (85-104); ABG TCO2 21 mEq/L (20-26); Blood Gas VT 500 cc
[2021-01-18] MEDS ORDERED: 0.9 % Sodium Chloride 250 ML ONE ×2 (00:06→00:09)
[2021-01-18] MEDS ORDERED: Pantoprazole 40 MG in 0.9 % Sodium Chloride Mini Bag 100 ML IVC SCH (00:15)
[2021-01-18] MEDS: *HR* Dextrose 50 % in Water (Syg) 50 ML SYRINGE IVP PRN ×2 (00:19→03:08)
[2021-01-18] MEDS: Phenylephrine 50 MG in 0.9 % Sodium Chloride 250 ML IVC SCH ×2 (00:20→04:38)
[2021-01-18 00:35] LABS: VBG Ionized Calcium 0.98 mmol/L (1.15-1.35)
[2021-01-18 00:36] LABS: Hematocrit 30.6 % (35.3-44.9)
[2021-01-18 00:38] LABS: Hemoglobin 9.1 g/dL (11.5-15.4)
[2021-01-18 00:46] LABS: INR 2.4
[2021-01-18] MEDS: Norepinephrine 4 MG/254 ML IV.SOLN IVC SCH ×3 (01:00→05:26)
[2021-01-18 01:10] LABS: Alanine Aminotransferase 606 Units/L (7-52); Albumin 2.5 g/dL (3.5-5.7); Albumin/Globulin Ratio 1.1 (1.1-2.2); Alkaline Phosphatase 172 Units/L (34-104); Aspartate Amino Transferase 1592 Units/L (13-39); BUN/Creatinine Ratio 32 (6-26); Bilirubin,Direct 1.2 mg/dL (0.0-0.2); Bilirubin,Indirect 1.5 mg/dL (0.0-1.0); Bilirubin,Total 2.7 mg/dL (0.3-1.0); Blood Urea Nitrogen 29 mg/dL (6-20); Calcium 7.9 mg/dL (8.6-10.3); Carbon Dioxide 18 mEq/L (23-29); Chloride 100 mEq/L (98-107); Globulin 2.3 g/dL (2.4-3.5); Glucose 32 mg/dL (70-105); Magnesium 1.9 mg/dL (1.6-2.6); Osmolality,Calculated 292 (280-300); Potassium 5.9 mEq/L (3.5-5.1); Sodium 140 mEq/L (136-145); Total Protein 4.8 g/dL (6.4-8.9); Troponin I 0.06 ng/mL (< 0.04); eGFR For African Americans > 60 (> 60); eGFR For Non-African Americans > 60 (> 60)
[2021-01-18] MEDS: Artificial Tears SOLN 15 ML BOTTLE BOTH EYES SCH ×2 (01:14→03:15)
[2021-01-18] MEDS ORDERED: Albuterol Neb 7.5 MG, Sodium Chloride for inhalation 12 ML IH ONE (02:17)
[2021-01-18] MEDS: Octreotide 400 MCG in 0.9 % Sodium Chloride 100 ML IVC SCH (02:22)
[2021-01-18] MEDS ORDERED: Albuterol 2.5 MG/3 ML NEBULIZER ONE (02:28)
[2021-01-18] MEDS ORDERED: Albuterol 2.5 MG/3 ML NEBULIZER IH ONE (02:28)
[2021-01-18] MEDS ORDERED: Vasopressin 40 UNIT in D5% in Water 100 ML IVC SCH (02:30)
[2021-01-18] MEDS: Calcium Gluconate 1gm/50mL 1 GM/50 ML BAG IVPB SCH ×2 (02:34→02:56)
[2021-01-18] MEDS ORDERED: Albumin 25% 25gram/100mL 25 GM/100 ML IV.SOLN IVPB ONE (02:37)
[2021-01-18] MEDS ORDERED: Albumin 25% 25gram/100mL 25 GM/100 ML IV.SOLN ONE (02:51)
[2021-01-18 03:33] VITALS: TEMP 97.7
[2021-01-18] MEDS ORDERED: D5% in Water 1,000 ML IVC SCH (03:45)
[2021-01-18 04:07] LABS: Hemoglobin 8.1 g/dL (11.5-15.4); Mean Corpuscular Hemoglobin 28.2 pg (28.0-33.3); Mean Corpuscular Volume 94.1 fL (83.0-100.0); Mean Platelet Volume 11.9 fL (9.4-12.4); Nucleated Red Blood Cells 17.5 /100 WBC (0); Platelet Count 137 K/mcL (140-400); Red Blood Count 2.87 M/mcL (3.82-4.97); Red Cell Distribution Width 19.4 % (11.5-14.5)
[2021-01-18 04:26] LABS: ABG Base Excess -9 mEq/L (-2 to 3); ABG HCO3 17 mEq/L (21-27); ABG Oxygen Saturation 96 % (95-98); ABG PCO2 37 mmHg (35-45); ABG PH 7.27 pH Units (7.32-7.45); ABG PO2 92 mmHg (85-104); ABG TCO2 18 mEq/L (20-26); Blood Gas VT 500 cc
[2021-01-18 04:52] LABS: Alanine Aminotransferase 1140 Units/L (7-52); Albumin 3.5 g/dL (3.5-5.7); Albumin/Globulin Ratio 1.8 (1.1-2.2); Alkaline Phosphatase 179 Units/L (34-104); Aspartate Amino Transferase > 3000 Units/L (13-39); BUN/Creatinine Ratio 32 (6-26); Bilirubin,Direct 1.6 mg/dL (0.0-0.2); Bilirubin,Indirect 1.4 mg/dL (0.0-1.0); Blood Urea Nitrogen 33 mg/dL (6-20); Calcium 8.1 mg/dL (8.6-10.3); Carbon Dioxide 18 mEq/L (23-29); Chloride 98 mEq/L (98-107); Glucose 81 mg/dL (70-105); Magnesium 1.8 mg/dL (1.6-2.6); Osmolality,Calculated 302 (280-300); Potassium 5.2 mEq/L (3.5-5.1); Sodium 143 mEq/L (136-145); Total Protein 5.5 g/dL (6.4-8.9); eGFR For African Americans > 60 (> 60); eGFR For Non-African Americans 57 (> 60)
[2021-01-18 04:54] LABS: Lymphocytes # 3.4 K/mcL (0.6-4.6); Neutrophils # 30.6 K/mcL (1.6-8.9); Platelet Estimate Normal (Normal); Toxic Granulation Present (Not Present)
[2021-01-18 04:55] LABS: Anisocytosis 2+ (Not Present); Polychromasia 1+ (Not Present)
[2021-01-18 05:17] VITALS: O2SAT 95
[2021-01-18] MEDS ORDERED: Insulin LISPRO 300 UNITS/3 ML VIAL SUBQ SCH (06:00)
[2021-01-18 06:05] VITALS: BP 71/43; PULSE 89
[2021-01-18] MEDS ORDERED: *HR* LORazepam 2 MG/ML VIAL IVP PRN (07:58)
[2021-01-18] MEDS ORDERED: MetroNIDAZOLE 500 MG/100 ML 500 MG/100 ML BAG IVPB SCH (08:00)
[2021-01-18] MEDS ORDERED: Cefepime HCl 1,000 MG in 0.9 % Sodium Chloride Mini Bag 100 ML IVPB SCH (08:00)
[2021-01-18] MEDS ORDERED: Chlorhexidine Rinse 15 ML MOUTHWASH MM SCH (09:00)
[2021-01-18] MEDS ORDERED: Vancomycin 2,000 MG/520 ML IV.SOLN IVPB ONE (13:00)
[2021-01-19] MEDS ORDERED: Vancomycin 1,500 MG/265 ML IV.SOLN IVPB SCH (01:00)
== END 2021-01-18 10:50 | disposition expired | DRG 720 ==
LOC: EMEROOARM 16:43 → CDU 21:37 → ICNU 23:45
PROVIDERS: ADMIT Internal Medicine; ATTEND Internal Medicine